=== PATIENT | male | born 1975 | race Caucasian/White ===

== ENCOUNTER 2018-08-11 17:12 | Emergency (ER) | payer OTHER ==
[~2018-08-11] VITALS: Ht 170.2 cm; Wt 72.6 kg
[2018-08-11] MEDS ORDERED: ROBAXIN 750 MG750 M1 PO (19:15)
[2018-08-11] MEDS ORDERED: NABUMETONE 750750 M1 PO (19:15)
[2018-08-11 20:23] VITALS: BP 122/62
== END 2018-08-11 20:23 | disposition home or self-care (01) ==
LOC: M.ERS 17:12
DX: S01.01XA Laceration without foreign body of scalp, initial encounter (principal); S16.1XXA Strain of muscle, fascia and tendon at neck level, initial encounter; S40.011A Contusion of right shoulder, initial encounter; F17.210 Nicotine dependence, cigarettes, uncomplicated; Y08.89XA Assault by other specified means, initial encounter; Y93.89 Activity, other specified; Y92.89 Other specified places as the place of occurrence of the external cause; Y99.8 Other external cause status

== ENCOUNTER 2018-08-17 15:53 | Emergency (ER) | payer OTHER ==
[~2018-08-17] VITALS: Ht 170.2 cm; Wt 74.8 kg
[~2018-08-17 15:53] MED LIST: NABUMETONE 750750 M1 PO; ROBAXIN 750 MG750 M1 PO
[2018-08-17 15:54] VITALS: BP 106/48
== END 2018-08-17 16:03 | disposition home or self-care (01) ==
LOC: M.ERS 15:53
DX: S01.01XD Laceration without foreign body of scalp, subsequent encounter (principal); X58.XXXD Exposure to other specified factors, subsequent encounter